=== PATIENT | male | born 1960 | race Caucasian/White ===

== ENCOUNTER → 2024-06-16 13:32 | Outpatient (REF) | payer OTHER, SELFPAY | LOC: MRI 3T 13:32 | PROVIDERS: ATTENDING PHYSICIAN Family Medicine Sports Medicine | DX: S48.01 Complete traumatic amputation at shoulder joint (principal); S46.212A Strain of muscle, fascia and tendon of other parts of biceps, left arm, initial encounter; S43.432A Superior glenoid labrum lesion of left shoulder, initial encounter; F40.240 Claustrophobia | CPT/HCPCS: 23350; 73040; 73222 ==